=== PATIENT | male | born 1945 | race Asian ===

== ENCOUNTER 2019-12-27 06:21 | Day surgery (SDC) | payer MEDICARE, OTHER ==
[~2019-12-27] VITALS: Ht 160 cm; Wt 65.0 kg
[~2019-12-27 06:21] MED LIST: ATEN-72 PO; BUDE10.2 IH; ESCI-8 PO; FLUC200T PO; LOSA100T58 PO; MONT10TA21 PO; OMEP20CA12 PO; PRED10TA3 PO; SODIUM CHLORIDE 0.9% 1,000 ML ONE; ZOLP10TA6 PO
[2019-12-27] MEDS ORDERED: SODIUM CHLORIDE 0.9% 1,000 ML IV ONE (06:30)
[2019-12-27] MEDS ORDERED: DUTA1CPM4 PO (07:36)
[2019-12-27] MEDS ORDERED: ATOR40TA28 PO (07:36)
[2019-12-27] MEDS ORDERED: TAMS-13 PO (07:36)
[2019-12-27] MEDS ORDERED: VALS1TAB81 PO (07:51)
[2019-12-27] MEDS ORDERED: SERT50TA12 PO (07:51)
[2019-12-27] MEDS ORDERED: METO-558 PO (07:51)
[2019-12-27] MEDS ORDERED: MIDAZOLAM HCL 2 MG/2 ML VIAL ONE (07:58)
[2019-12-27] MEDS ORDERED: FentaNYL CITRATE-PF 100 MCG/2 ML VIAL ONE (07:58)
[2019-12-27] MEDS ORDERED: MethylPREDNISolone SOD SUCC 125 MG/2 ML VIAL IVP ONE (09:00)
[2019-12-27] MEDS ORDERED: MethylPREDNISolone SOD SUCC 125 MG/2 ML VIAL ONE (09:59)
[2019-12-27] MEDS ORDERED: OXYGEN THERAPY IH SCH (20:00)
== END 2019-12-27 11:40 | disposition home or self-care (01) ==
LOC: SURGERY 06:21
PROVIDERS: ATTEND Internal Medicine Critical Care Medicine
DX: J38.4 Edema of larynx (principal); B37.0 Candidal stomatitis; M19.90 Unspecified osteoarthritis, unspecified site; I10 Essential (primary) hypertension; E78.00 Pure hypercholesterolemia, unspecified
CPT/HCPCS: 31623; 31624; 71045; 87015; 87070; 87101; 87205; 87206; 87220; 88108; 88312; J2250; J2930; J3010; J7030

== ENCOUNTER 2022-10-21 06:33 | Day surgery (SDC) | payer MEDICARE, OTHER ==
[~2022-10-21] VITALS: Ht 160 cm; Wt 65.0 kg
[~2022-10-21 06:33] MED LIST changes: -ATEN-72 PO; +ATOR40TA28 PO; -BUDE10.2 IH; +DUTA1CPM4 PO; -ESCI-8 PO; -FLUC200T PO; -LOSA100T58 PO; +METO-558 PO; +MONT-35 PO; -MONT10TA21 PO; -OMEP20CA12 PO; -PRED10TA3 PO; +SERT-158 PO; -SODIUM CHLORIDE 0.9% 1,000 ML ONE; +TAMS-13 PO; +VALS1TAB81 PO; -ZOLP10TA6 PO
[2022-10-21] MEDS ORDERED: LIDOCAINE 4% 50 ML SOLUTION TP ONE (06:34)
[2022-10-21] MEDS ORDERED: BENZOCAINE 20% 50 MCG/SPRAY 57 GM TP ONE (06:34)
[2022-10-21] MEDS ORDERED: LIDOCAINE 2% 11 ML JELLY TP ONE (06:34)
[2022-10-21] MEDS ORDERED: ALBUTEROL SULFATE 2.5 MG/0.5 ML NEB SOLUTION NEB ONE (06:34)
[2022-10-21] MEDS ORDERED: SODIUM CHLORIDE 0.9% 1,000 ML IV ONE (07:00)
[2022-10-21] MEDS ORDERED: SODIUM CHLORIDE 0.9% 1,000 ML ONE (07:04)
[2022-10-21] MEDS ORDERED: FentaNYL CITRATE PF 100 MCG/2 ML VIAL ONE (07:42)
[2022-10-21] MEDS ORDERED: MIDAZOLAM HCL 2 MG/2 ML VIAL ONE (07:43)
[2022-10-21] MEDS ORDERED: DONE-52 PO (08:46)
[2022-10-21] MEDS ORDERED: RISP0.5T39 PO (08:46)
[2022-10-21] MEDS ORDERED: TERA1CAP53 PO (08:46)
[2022-10-21] MEDS ORDERED: CLOP75TA60 PO (08:46)
[2022-10-21] MEDS ORDERED: PRED-729 PO (08:46)
[2022-10-21] MEDS ORDERED: DUTA.5 PO (08:46)
[2022-10-21] MEDS ORDERED: OXYB5TAB20 PO (08:46)
[2022-10-21] MEDS ORDERED: MethylPREDNISolone SOD SUCC 125 MG/2 ML VIAL ONE (09:00)
[2022-10-21] MEDS ORDERED: MethylPREDNISolone SOD SUCC 125 MG/2 ML VIAL IVP ONE (09:15)
== END 2022-10-21 11:10 | disposition home or self-care (01) ==
LOC: SURGERY 06:33
PROVIDERS: ATTEND Internal Medicine Critical Care Medicine
DX: J38.4 Edema of larynx (principal); B37.0 Candidal stomatitis; I10 Essential (primary) hypertension; Z79.899 Other long term (current) drug therapy
CPT/HCPCS: 31623; 87206; 87101; 87220; 87070; 31624; 94640; 71045; 87015; J3010; J2250; J2930; Q9967; J7030; 88112; 88305; J7613; Z7610